=== PATIENT | male | born 1960 | race Caucasian/White ===

== ENCOUNTER → 2016-04-27 | Outpatient (CLI) | payer BC ==
--- NOTE | 2016-04-27 18:45 | DX ---
Bilateral Feet (3 Views with Weightbearing) at 4:14 p.m. Clinical History: 56-year-old male with bilateral foot and heel pain, particularly over the right Ac hilles insertion point. Rule out bone spur or other abnormality. ICD-10 Diagnostic Code: M72.2. Comparison Study: Right foot, dated May 05, 2011. Findings: LEFT FOOT: Bone mineralization is preserved. There is a mild hallux valgus configuration with a mild osseous bunion. There is some osseous hypertrophy and mild joint space narrowing at the great toe MT P joint, and there is also some degenerative spur formation along the distal medial portion of the gr eat toe proximal phalanx near the interphalangeal joint. The tarsometatarsal alignment is anatomic. T here is a large plantar calcaneal enthesophyte. The pre-Achilles fat pad is normal. Boehler's angle i s normal. The subtalar joint is normal. There is no ankle joint effusion. Impression: 1. 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 2. Large plantar calcaneal enthesophyte. RIGHT FOOT: Bone mineralization is preserved. There is a mild degree of degenerative osteoarthritic narrowing of the great toe metatarsophalangeal joint with a mild osseous bunion. The tarsometatarsal alignment is anatomic. There is no fracture, dislocation, periostitis, marginal erosion, or soft tiss ue calcification. There is a mild persistent abductus deformity of the second toe distal phalanx Ther e is a small plantar calcaneal enthesophyte. The pre-Achilles fat pad is normal. Boehler's angle is n ormal. The subtalar joint is normal. There is no convincing evidence of an ankle joint effusion. Impression: 1. Mild degenerative change of the right great toe metatarsophalangeal joint. 2. Persistent abductus deformity of the distal phalanx of the right second toe. 3. Small plantar calcaneal enthesophyte.
== END ==
LOC: BMCIMAGING 16:05
PROVIDERS: ATTEND Podiatrist Foot & Ankle Surgery
DX: M20.5X1 Other deformities of toe(s) (acquired), right foot (principal); M89.472 Other hypertrophic osteoarthropathy, left ankle and foot

== ENCOUNTER 2018-03-21 02:27 | Emergency (ER) | payer BC ==
[2018-03-21] MEDS ORDERED: ASPIRIN 81 MG CHEWABLE TAB PO ONE (02:45)
[2018-03-21] MEDS ORDERED: NITROGLYCERIN 0.4 MG BTL SL ONE (02:45)
--- NOTE | 2018-03-21 02:46 | EDPHY ---
H & P Stated Complaint: chest pain Time Seen by Provider: 03/21/18 02:33 HPI/ROS: Chief Complaint: Chest pain HPI: 57-year-old male with a history of hyperlipidemia is presenting complaining of chest pain which began 8 1/2 hr ago. Patient states that his pain started at rest at 6:00 In the evening. Is described as a heaviness in his chest which radiates to his shoulders. It is associated some shortness of breath. Is been getting worse over the course of the evening. Right now is a 7 /10. No fevers or chills. No cough. No recent travel. No leg pain or swelling. Does not smoke. No family history of coronary artery disease. He has had similar episodes in the past but the pain was not in his shoulders. At that time he was seen and had negative stress test. There are no aggravating or alleviating factors. ROS: 10 systems were reviewed and were negative except those elements noted in the HPI. PMH: Hyperlipidemia Social History: No smoking, occasional alcohol, no recreational drug use Family History: non-contributory Physical Exam: Gen: Awake, Alert, No Distress HEENT: Nose: no rhinorrhea Eyes: PERRLA, EOMI Mouth: Moist mucosa Neck: Supple, no JVD Chest: nontender, lungs clear to auscultation Heart: S1, S2 normal, no murmur Abd: Soft, non-tender, no guarding Back: no CVA tenderness, no midline tenderness Ext: no edema, non-tender Skin: no rash Neuro: CN II-XII intact, Sensation grossly intact, Strength 5/5 in bilateral upper and lower extremities - Personal History Current Tetanus Diphtheria and Acellular Pertussis (TDAP): Yes - Medical/Surgical History Hx Asthma: No Hx Chronic Respiratory Disease: No Hx Diabetes: No Hx Cardiac Disease: Yes Hx Renal Disease: No Hx Cirrhosis: No Hx Alcoholism: No Hx HIV/AIDS: No Hx Splenectomy or Spleen Trauma: No Other PMH: hyperlipemia, orthoscopic knee surg, tonsillectomy - Social History Smoking Status: Never smoked Constitutional: Initial Vital Signs Temperature (C) 36.9 C 03/21/18 02:30 Heart Rate 80 03/21/18 02:30 Respiratory Rate 20 03/21/18 02:30 Blood Pressure 129/90 H 03/21/18 02:30 O2 Sat (%) 92 12/10/18 02:30 O2 Delivery Mode Room Air Allergies/Adverse Reactions: No Known Allergies Allergy (Unverified 03/21/18 02:29) Home Medications: Medication Instructions Recorded Aspirin [Aspirin 81mg (*)] 81 mg PO DAILY 12/04/15 Herbals/Supplements -Info Only 1 ea PO DAILY 12/04/15 Ibuprofen 3 tab PO TID #0 capsule 12/04/15 Medical Decision Making - Diagnostics EKG Interpretation: ECG time 2:40 a.m. Sinus rhythm rate of 82, normal axis, normal intervals, no acute ST or T-wave changes. ED Course/Re-evaluation: 57-year-old male with 8 1/2 hr of chest tightness which has been constant. Troponin is 0. ECG is no ischemia. He has had no relief with nitroglycerin is. Will give a GI cocktail and reassess. Patient's pain is improved after GI cocktail. Now 4/10. Patient is improved. His no acute ischemia on EKG. Troponin is 0 after 8 0.5 hr of symptoms. Hemodynamics are fine. He has improved a GI cocktail. Symptoms consistent with a gastrointestinal cause. Will discharge on antacid medicine, follow up with primary care. - Data Points Laboratory Results: Laboratory Results 03/21/18 02:40 03/21/18 02:40 03/21/18 03/21/18 03/21/18 02:43 02:40 02:40 WBC 8.86 10^3/uL 10^3/uL (3.80-9.50) RBC 5.49 10^6/uL 10^6/uL (4.40-6.38) Hgb 15.2 g/dL g/dL (13.7-17.5) Hct 45.2 % % (40.0-51.0) MCV 82.3 fL fL (81.5-99.8) MCH 27.7 pg L pg (27.9-34.1) MCHC 33.6 g/dL g/dL (32.4-36.7) RDW 14.0 % % (11.5-15.2) Plt Count 185 10^3/uL 10^3/uL (150-400) MPV 11.4 fL fL (8.7-11.7) Neut % (Auto) 70.5 % % (39.3-74.2) Lymph % (Auto) 18.7 % % (15.0-45.0) [place] % (Auto) 8.9 % % (4.5-13.0) Eos % (Auto) 1.6 % % (0.6-7.6) Baso % (Auto) 0.2 % L % (0.3-1.7) Nucleat RBC Rel Count 0.0 % % (0.0-0.2) Absolute Neuts (auto) 6.24 10^3/uL 10^3/uL (1.70-6.50) Absolute Lymphs (auto) 1.66 10^3/uL 10^3/uL (1.00-3.00) Absolute Monos (auto) 0.79 10^3/uL 10^3/uL (0.30-0.80) Absolute Eos (auto) 0.14 10^3/uL 10^3/uL (0.03-0.40) Absolute Basos (auto) 0.02 10^3/uL 10^3/uL (0.02-0.10) Absolute Nucleated RBC 0.00 10^3/uL 10^3/uL (0-0.01) Immature Gran % 0.1 % % (0.0-1.1) Immature Gran # 0.01 10^3/uL 10^3/uL (0.00-0.10) Sodium 139 mEq/L mEq/L (135-145) Potassium 4.3 mEq/L mEq/L (3.5-5.2) Chloride 103 mEq/L mEq/L (97-110) Carbon Dioxide 26 mEq/l mEq/l (22-31) Anion Gap 10 mEq/L mEq/L (6-14) BUN 18 mg/dL mg/dL (7-23) Creatinine 1.0 mg/dL mg/dL (0.7-1.3) Estimated GFR > 60 Glucose 132 mg/dL H mg/dL (70-100) Calcium 9.4 mg/dL mg/dL (8.5-10.4) POC Troponin I 0.00 ng/mL ng/mL (0.00-0.08) Medications Given: Discontinued Medications Al Hydroxide/Mg Hydroxide (Maalox Susp) 30 ml PO ONCE ONE Stop: 03/21/18 03:29 Last Admin: 03/21/18 03:36 Dose: 30 ml Aspirin (Aspirin) 324 mg PO EDNOW ONE Stop: 03/21/18 02:46 Last Admin: 03/21/18 02:47 Dose: 324 mg Famotidine (Pepcid) 20 mg IVP EDNOW ONE Stop: 03/21/18 04:11 Last Admin: 03/21/18 04:11 Dose: 20 mg Ketorolac Tromethamine (Toradol) 15 mg IVP EDNOW ONE Stop: 03/21/18 03:07 Last Admin: 03/21/18 03:13 Dose: 15 mg Lidocaine (Lidocaine 2% Viscous) 15 ml PO ONCE ONE Stop: 03/21/18 03:29 Last Admin: 03/21/18 03:36 Dose: 15 ml Nitroglycerin (Nitrostat) 0.4 mg SL EDNOW ONE Stop: 03/21/18 02:46 Last Admin: 03/21/18 02:48 Dose: 0.4 mg Point of Care Test Results: Chemistry 03/21/18 02:43 POC Troponin I 0.00 ng/mL ng/mL (0.00-0.08) Departure - Departure Disposition: Home, Routine, Self-Care Clinical Impression: Atypical chest pain Condition: Good Instructions: Chest Pain (ED) Additional Instructions: Follow up with primary care physician in 2-3 days for further evaluation. Begin taking famotidine [id number] daily as needed for reflux symptoms. Return to the emergency department for worsening chest pain, shortness of breath , fainting, or any other concerns. Referrals: Jovanny Rasmussen MD [Primary Care Provider] - As per Instructions
[2018-03-21 02:49] LABS: PLATELET COUNT 185 10^3/uL (150-400)
[2018-03-21] MEDS ORDERED: KETOROLAC 15 MG/1 ML SDV IVP ONE (03:06)
[2018-03-21] MEDS ORDERED: MAG HYDROX/AL HYDROX/SIMETH 30 ML UDCUP PO ONE (03:28)
[2018-03-21] MEDS ORDERED: LIDOCAINE 2% VISCOUS 15 ML UDCUP PO ONE (03:28)
[2018-03-21] MEDS ORDERED: FAMOTIDINE 20 MG/2 ML SDV ONE (04:09)
[2018-03-21] MEDS ORDERED: FAMOTIDINE 20 MG/2 ML SDV IVP ONE (04:10)
--- NOTE | 2018-03-21 04:13 | CPEKG ---
Test Reason : OPEN Blood Pressure : / mmHG Vent. Rate : 079 BPM Atrial Rate : 080 BPM P-R Int : 151 ms QRS Dur : 091 ms QT Int : 387 ms P-R-T Axes : 056 055 074 degrees QTc Int : 444 ms Sinus rhythm Confirmed by Diaz Hahn ([id number]) on 03/21/2018 4:12:36 AM Referred By: Confirmed By:Diaz Hahn
[2018-03-21 05:23] VITALS: BP 108/79
--- NOTE | 2018-03-23 11:16 | CPEKG ---
Test Reason : OPEN Blood Pressure : / mmHG Vent. Rate : 082 BPM Atrial Rate : 082 BPM P-R Int : 152 ms QRS Dur : 090 ms QT Int : 360 ms P-R-T Axes : 053 052 061 degrees QTc Int : 421 ms Sinus rhythm Borderline ST elevation throughout, consider pericariditis. Confirmed by Lukas Smith ([id number]) on 03/23/2018 11:15:35 AM Referred By: Confirmed By:Lukas Smith
== END 2018-03-21 05:41 | disposition home or self-care (01) ==
DX: R07.89 Other chest pain (principal); E78.5 Hyperlipidemia, unspecified
CPT/HCPCS: 84484-PO; 96374; J1885